=== PATIENT | female | born 1975 | race Two or more races ===

== ENCOUNTER 2017-07-10 00:48 | Emergency (ER) | payer MEDICAID ==
[~2017-07-10] VITALS: Ht 157.5 cm; Wt 68.0 kg
[2017-07-10 01:24] VITALS: BP 130/84
== END 2017-07-10 02:07 | disposition home or self-care (01) ==
LOC: ER 00:48
DX: S20.212A Contusion of left front wall of thorax, initial encounter (principal); L25.9 Unspecified contact dermatitis, unspecified cause; L74.3 Miliaria, unspecified; F17.210 Nicotine dependence, cigarettes, uncomplicated; F12.10 Cannabis abuse, uncomplicated; F15.10 Other stimulant abuse, uncomplicated; Z88.0 Allergy status to penicillin; Z98.51 Tubal ligation status; W22.8XXA Striking against or struck by other objects, initial encounter; Y93.39 Activity, other involving climbing, rappelling and jumping off; Y99.8 Other external cause status; Y92.89 Other specified places as the place of occurrence of the external cause
CPT/HCPCS: 71020

== ENCOUNTER 2017-10-09 21:25 | Emergency (ER) | payer MEDICAID ==
[~2017-10-09] VITALS: Ht 160 cm; Wt 69.9 kg
[2017-10-09 21:40] VITALS: BP 124/73
[2017-10-09 21:57] LABS: Urine Bilirubin Negative (Negative); Urine Blood 1+ /uL (Negative); Urine Color Yellow (Yellow); Urine Glucose Normal (Normal); Urine Ketone Negative (Negative); Urine Mucus FEW (None Seen); Urine Nitrite Negative (Negative); Urine RBC 11 /hpf (0 - 4); Urine Squamous Epithelial Cell FEW /hpf (<5); Urine Urobilinogen Normal (Negative); Urine pH 5.5 (5.0-8.0)
[2017-10-10] MEDS ORDERED: KETOROLAC TROMETH 60MG/2ML VIAL IM ONE (01:00)
== END 2017-10-10 01:12 | disposition home or self-care (01) ==
LOC: ER 21:25
DX: N93.9 Abnormal uterine and vaginal bleeding, unspecified (principal); F17.210 Nicotine dependence, cigarettes, uncomplicated; F12.10 Cannabis abuse, uncomplicated; F15.10 Other stimulant abuse, uncomplicated; Z88.0 Allergy status to penicillin; Z98.51 Tubal ligation status
CPT/HCPCS: 72131; 81001; 99285; J1885

== ENCOUNTER 2019-11-17 11:59 | Emergency (ER) | payer MEDICAID ==
[~2019-11-17] VITALS: Ht 154.9 cm; Wt 65.8 kg
[2019-11-17 14:43] VITALS: BP 107/69
== END 2019-11-17 16:01 | disposition home or self-care (01) ==
LOC: ER 12:03
DX: M25.561 Pain in right knee (principal); F17.210 Nicotine dependence, cigarettes, uncomplicated
CPT/HCPCS: 73562

== ENCOUNTER 2020-10-17 12:00 | Emergency (ER) | payer MEDICAID ==
[~2020-10-17] VITALS: Ht 157.5 cm; Wt 64.4 kg
[2020-10-17 13:02] VITALS: BP 122/68
== END 2020-10-18 04:47 | disposition left against medical advice (07) ==
LOC: ER 12:00 → EDBD 12:00 → ER 10-18 04:47
DX: F41.9 Anxiety disorder, unspecified (principal); F17.210 Nicotine dependence, cigarettes, uncomplicated
CPT/HCPCS: 71045

== ENCOUNTER 2022-12-13 10:55 | Inpatient (IN) | payer MEDICAID ==
[~2022-12-13] VITALS: Ht 154.9 cm; Wt 60.8 kg
[2022-12-13 12:01] LABS: Basophils # (auto) 0 10 ^3/uL (0-0.2); Basophils % (auto) 0.6 % (0.0-2.0); Eosinophils # (auto) 0.1 10 ^3/uL (0-0.8); Eosinophils % (auto) 0.8 % (0.0-7.0); Hemoglobin 18.7 g/dL (12.2-16.2); Lymphocytes # (auto) 1.1 10 ^3/uL (0.4-5.4); Lymphocytes % (auto) 13.7 % (10.0-50.0); Mean Corpuscular Hemoglobin 31.5 pg (28.0-32.0); Mean Corpuscular Hgb Conc. 32.6 g/dL (32.0-36.0); Mean Corpuscular Volume 96.6 fL (80.0-100.0); Monocytes # (auto) 0.3 10 ^3/uL (0-1.3); Monocytes % (auto) 3.9 % (0.0-12.0); Neutrophils # (auto) 6.3 10 ^3/uL (1.6-8.6); Nucleated Red Blood Cells % 0.1 %; Red Blood Cells 5.95 10^6/uL (4.0-5.20); Red Cell Distribution Width 15.1 % (11.8-14.3); White Blood Cell 7.8 10^3/uL (4.4-10.8)
[2022-12-13 12:02] LABS: Hematocrit 57.5 % (36.0-46.0)
[2022-12-13] MEDS ORDERED: ENOXAPARIN SOD 60 MG/0.6 ML SYRINGE SC ONE (13:00)
[2022-12-13 15:31] LABS: Albumin 2.9 g/dL (3.4-5.0); Calcium 8.6 mg/dL (8.5-10.1); Potassium 3.8 mmol/L (3.5-5.1)
[2022-12-13 15:35] LABS: Bilirubin, Total 0.9 mg/dL (0.2-1.0); Total Protein 6.8 g/dL (6.4-8.2)
[2022-12-13] MEDS ORDERED: MORPHINE SULFATE INJ 2 MG/ml SYRG IV PRN ×2 (15:45)
[2022-12-13] MEDS ORDERED: DOCUSATE SOD 100 MG CAP PO PRN (15:45)
[2022-12-13] MEDS ORDERED: ONDANSETRON HCL 4 MG/2 ML VIAL IV PRN (15:45)
[2022-12-13] MEDS ORDERED: NITROGLYCERIN 0.4 MG SL TAB SL PRN (15:45)
[2022-12-13] MEDS: SODIUM CHLORIDE 0.9% 1,000 ML IV SCH (16:12)
[2022-12-13 16:33] VITALS: BP 137/116
[2022-12-13 17:29] LABS: Urine Bacteria FEW /hpf (None Seen); Urine Blood TRACE /uL (Negative); Urine Mucus FEW (None Seen); Urine Specific Gravity 1.015 (1.001-1.035); Urine WBC 7 /hpf (0 - 5)
[2022-12-13] MEDS ORDERED: ALBUTEROL SULF 2.5 MG/0.5ML(0.5%) NEB SOLN NEB SCH (18:00)
[2022-12-13] MEDS ORDERED: ALBUTEROL MEDNEB 2.5 mg/3ml NEB ONE (18:19)
[2022-12-13] MEDS ORDERED: IOHEXOL 350 MG/ML 100ML IJ ONE ×2 (18:37→20:43)
[2022-12-13] MEDS: ALBUTEROL SULF 2.5 MG/0.5ML(0.5%) NEB SOLN NEB SCH (19:14)
[2022-12-13] MEDS: IPRATROPIUM BROM 0.5 MG/2.5ML INH SOL NEB SCH (19:14)
[2022-12-14] MEDS ORDERED: ALBUTEROL MEDNEB 2.5 mg/3ml NEB ONE ×6 (00:20→23:49)
[2022-12-14] MEDS: ENOXAPARIN SOD 60 MG/0.6 ML SYRINGE SC SCH ×2 (00:28→00:36)
[2022-12-14] MEDS: methylPREDNISolone SOD SUCC 125 MG/2 ML VL IV SCH ×4 (00:30→22:24)
[2022-12-14] MEDS: ALBUTEROL SULF 2.5 MG/0.5ML(0.5%) NEB SOLN NEB SCH ×4 (06:22→18:00)
[2022-12-14] MEDS: IPRATROPIUM BROM 0.5 MG/2.5ML INH SOL NEB SCH ×4 (06:22→18:00)
[2022-12-14] MEDS: SODIUM CHLORIDE 0.9% 1,000 ML IV SCH ×2 (07:30→10:36)
[2022-12-14] MEDS ORDERED: ENOXAPARIN SOD 40 MG/0.4 ML SYRINGE SC SCH (10:00)
[2022-12-14] MEDS: PANTOPRAZOLE 40 MG/10 ML VIAL INJ IV SCH (10:35)
[2022-12-14 14:24] VITALS: BP 147/96
[2022-12-14 15:19] LABS: Basophils # (auto) 0 10 ^3/uL (0-0.2); Eosinophils # (auto) 0 10 ^3/uL (0-0.8); Monocytes # (auto) 0.3 10 ^3/uL (0-1.3)
[2022-12-14 15:21] LABS: Basophils % (auto) 0.2 % (0.0-2.0); Hemoglobin 19.1 g/dL (12.2-16.2); Lymphocytes # (auto) 0.8 10 ^3/uL (0.4-5.4); Mean Corpuscular Hemoglobin 32.2 pg (28.0-32.0); Mean Corpuscular Hgb Conc. 33.8 g/dL (32.0-36.0); Mean Corpuscular Volume 95.2 fL (80.0-100.0); Monocytes % (auto) 2.6 % (0.0-12.0); Neutrophils # (auto) 11.5 10 ^3/uL (1.6-8.6); Neutrophils % (auto) 91.2 % (37.0-80.0); Nucleated Red Blood Cells % 0.7 %; Red Blood Cells 5.92 10^6/uL (4.0-5.20); White Blood Cell 12.6 10^3/uL (4.4-10.8)
[2022-12-14 15:26] LABS: Hematocrit 56.3 % (36.0-46.0)
[2022-12-14 15:35] LABS: Albumin 3.2 g/dL (3.4-5.0); Calcium 8.5 mg/dL (8.5-10.1); Potassium 4.1 mmol/L (3.5-5.1)
[2022-12-14 15:39] LABS: BUN/Creatinine Ratio 13.1; Bilirubin, Total 0.8 mg/dL (0.2-1.0); Total Protein 7.8 g/dL (6.4-8.2)
[2022-12-14] MEDS: FUROSEMIDE 40 MG/4 ML VIAL IV SCH ×2 (18:45→22:34)
[2022-12-14] MEDS ORDERED: INFLUENZA QUAD 2022-2023 0.5 ML SYRG IM ONE (19:30)
[2022-12-14] MEDS ORDERED: PNEUMOCOCCAL VACC POLYS 25 MCG/0.5 ML VIAL IM ONE (19:30)
[2022-12-14 20:00] VITALS: BP 140/92
[2022-12-14 22:00] VITALS: BP 140/94
[2022-12-15] VITALS (61 sets, daily range): BP systolic 62–140; BP diastolic 39–93
[2022-12-15] MEDS: IPRATROPIUM BROM 0.5 MG/2.5ML INH SOL NEB SCH ×5 (00:12→22:20)
[2022-12-15] MEDS: ALBUTEROL SULF 2.5 MG/0.5ML(0.5%) NEB SOLN NEB SCH ×5 (00:12→22:19)
[2022-12-15] MEDS: ACETAMINOPHEN 325 MG TAB PO PRN (01:19)
[2022-12-15] MEDS ORDERED: dilTIAZem 25 MG/5 ML VIAL IV ONE ×4 (02:29→02:45)
[2022-12-15 03:12] LABS: Basophils # (auto) 0.1 10 ^3/uL (0-0.2); Eosinophils # (auto) 0 10 ^3/uL (0-0.8); Monocytes # (auto) 0.4 10 ^3/uL (0-1.3); Neutrophils # (auto) 13.5 10 ^3/uL (1.6-8.6)
[2022-12-15 03:14] LABS: Basophils % (auto) 0.5 % (0.0-2.0); Hemoglobin 19.4 g/dL (12.2-16.2); Lymphocytes # (auto) 0.9 10 ^3/uL (0.4-5.4); Lymphocytes % (auto) 6.3 % (10.0-50.0); Mean Corpuscular Hemoglobin 31.5 pg (28.0-32.0); Mean Corpuscular Hgb Conc. 33.1 g/dL (32.0-36.0); Mean Corpuscular Volume 95.3 fL (80.0-100.0); Monocytes % (auto) 2.6 % (0.0-12.0); Neutrophils % (auto) 90.6 % (37.0-80.0); Nucleated Red Blood Cells % 0.2 %; Red Blood Cells 6.15 10^6/uL (4.0-5.20); White Blood Cell 14.9 10^3/uL (4.4-10.8)
[2022-12-15 03:15] LABS: Hematocrit 58.6 % (36.0-46.0)
[2022-12-15 03:22] LABS: Alanine Aminotransferase 82 U/L (13-56); Albumin 3.2 g/dL (3.4-5.0); Anion Gap 13 (5-15); Aspartate Aminotransferase 55 U/L (15-37); BUN/Creatinine Ratio 15.6; Blood Urea Nitrogen 20 mg/dL (7-18); Calcium 9.3 mg/dL (8.5-10.1); Carbon Dioxide 23 mmol/L (21-32); Chloride 102 mmol/L (98-107); GFR African American 57 mL/min; GFR Non-African American 47 mL/min; Glucose 169 mg/dL (74-106); Magnesium 1.9 mg/dL (1.6-2.6); Potassium 4.4 mmol/L (3.5-5.1); Sodium 138 mmol/L (136-145)
[2022-12-15 03:25] LABS: Alkaline Phosphatase 144 U/L (45-117); Bilirubin, Total 0.8 mg/dL (0.2-1.0); Total Protein 7.6 g/dL (6.4-8.2)
[2022-12-15] MEDS ORDERED: ASPirin-EC 325mg tab PO ONE (04:00)
[2022-12-15] MEDS: methylPREDNISolone SOD SUCC 125 MG/2 ML VL IV SCH ×3 (05:20→23:37)
[2022-12-15] MEDS ORDERED: ALBUTEROL MEDNEB 2.5 mg/3ml NEB ONE (06:00)
[2022-12-15] MEDS: FUROSEMIDE 40 MG/4 ML VIAL IV SCH ×3 (07:48→23:37)
[2022-12-15] MEDS ORDERED: LORazepam 2MG/ML-1ML VIAL IV ONE ×2 (08:15→11:00)
[2022-12-15] MEDS ORDERED: LORazepam 2MG/ML-1ML VIAL ONE (08:20)
[2022-12-15] MEDS ORDERED: AMIODARONE 450mg/250ml AE 250 ML IV ONE ×2 (08:25→15:45)
[2022-12-15] MEDS ORDERED: AMIODARONE HCL 150 MG in D5W 5% 100 ML IV ONE ×2 (08:30→11:45)
[2022-12-15] MEDS ORDERED: NOREPINEPHRINE 8 MG/250ML KIT 250 ML IV ONE (08:39)
[2022-12-15] MEDS ORDERED: AMIODARONE 450mg/250ml AE 250 ML IV SCH ×2 (08:45→14:45)
[2022-12-15] MEDS: NOREPINEPHRINE 8 MG/250ML KIT 250 ML IV SCH (09:30)
[2022-12-15] MEDS: PANTOPRAZOLE 40 MG/10 ML VIAL INJ IV SCH (09:54)
[2022-12-15] MEDS: ENOXAPARIN SOD 40 MG/0.4 ML SYRINGE SC SCH (09:54)
[2022-12-15] MEDS ORDERED: DIGOXIN (250MCG/ML) 2 ML AMPULE ONE (10:58)
[2022-12-15] MEDS ORDERED: DIGOXIN (250MCG/ML) 2 ML AMPULE IV ONE (11:00)
[2022-12-15] MEDS ORDERED: ETOMIDATE (2MG/ML) 20ML VIAL IV ONE (11:13)
[2022-12-15] MEDS ORDERED: ROCURONIUM 10MG/ML 10ML VIAL IV ONE (11:13)
[2022-12-15] MEDS: VASOPRESSIN 20 UNITS in SODIUM CHL 0.9% 99 ML IV SCH ×2 (12:10→22:07)
[2022-12-15 13:24] LABS: Basophils # (auto) 0 10 ^3/uL (0-0.2); Basophils % (auto) 0.2 % (0.0-2.0); Eosinophils # (auto) 0 10 ^3/uL (0-0.8); Hematocrit 54.8 % (36.0-46.0); Hemoglobin 18.4 g/dL (12.2-16.2); Lymphocytes # (auto) 0.7 10 ^3/uL (0.4-5.4); Lymphocytes % (auto) 5.2 % (10.0-50.0); Mean Corpuscular Hemoglobin 31.6 pg (28.0-32.0); Mean Corpuscular Hgb Conc. 33.6 g/dL (32.0-36.0); Monocytes # (auto) 0.7 10 ^3/uL (0-1.3); Monocytes % (auto) 4.7 % (0.0-12.0); Neutrophils # (auto) 12.5 10 ^3/uL (1.6-8.6); Neutrophils % (auto) 89.9 % (37.0-80.0); Nucleated Red Blood Cells % 0.3 %; Red Blood Cells 5.83 10^6/uL (4.0-5.20); Red Cell Distribution Width 14.9 % (11.8-14.3); White Blood Cell 13.9 10^3/uL (4.4-10.8)
[2022-12-15 13:30] LABS: Anion Gap 32 (5-15); Blood Urea Nitrogen 27 mg/dL (7-18); Calcium 8.2 mg/dL (8.5-10.1); Chloride 102 mmol/L (98-107); Glucose 167 mg/dL (74-106); Potassium 3.9 mmol/L (3.5-5.1); Sodium 135 mmol/L (136-145)
[2022-12-15] MEDS ORDERED: ADENOSINE 6 MG/2 ML INJ IV ONE (13:33)
[2022-12-15] MEDS ORDERED: AMIODARONE HCL (50 MG/ ML) 3 ML VIAL IV ONE (13:33)
[2022-12-15 13:48] LABS: Alanine Aminotransferase 78 U/L (13-56); Alkaline Phosphatase 126 U/L (45-117); Aspartate Aminotransferase 54 U/L (15-37); Bilirubin, Total 0.9 mg/dL (0.2-1.0); GFR African American 74 mL/min; GFR Non-African American 61 mL/min; Total Protein 7.1 g/dL (6.4-8.2)
[2022-12-15 13:51] LABS: BUN/Creatinine Ratio 26.5; Carbon Dioxide 1 mmol/L (21-32)
[2022-12-15 13:52] LABS: Magnesium < 0.3 mg/dL (1.6-2.6)
[2022-12-15 15:58] LABS: Basophils # (auto) 0 10 ^3/uL (0-0.2); Eosinophils # (auto) 0 10 ^3/uL (0-0.8); Lymphocytes # (auto) 0.8 10 ^3/uL (0.4-5.4); Mean Corpuscular Volume 95.3 fL (80.0-100.0); White Blood Cell 12.9 10^3/uL (4.4-10.8)
[2022-12-15 16:00] LABS: Basophils % (auto) 0.3 % (0.0-2.0); Hematocrit 52.2 % (36.0-46.0); Hemoglobin 17.4 g/dL (12.2-16.2); Lymphocytes % (auto) 6.2 % (10.0-50.0); Mean Corpuscular Hemoglobin 31.8 pg (28.0-32.0); Mean Corpuscular Hgb Conc. 33.4 g/dL (32.0-36.0); Monocytes # (auto) 0.7 10 ^3/uL (0-1.3); Monocytes % (auto) 5.2 % (0.0-12.0); Neutrophils # (auto) 11.4 10 ^3/uL (1.6-8.6); Neutrophils % (auto) 88.3 % (37.0-80.0); Nucleated Red Blood Cells % 0.5 %; Red Blood Cells 5.48 10^6/uL (4.0-5.20); Red Cell Distribution Width 14.8 % (11.8-14.3)
[2022-12-15 16:13] LABS: Alanine Aminotransferase 70 U/L (13-56); Albumin 2.7 g/dL (3.4-5.0); Anion Gap 9 (5-15); Aspartate Aminotransferase 45 U/L (15-37); BUN/Creatinine Ratio 24.8; Blood Urea Nitrogen 26 mg/dL (7-18); Calcium 8.7 mg/dL (8.5-10.1); Carbon Dioxide 27 mmol/L (21-32); Chloride 102 mmol/L (98-107); GFR African American 72 mL/min; GFR Non-African American 59 mL/min; Glucose 123 mg/dL (74-106); Potassium 4.2 mmol/L (3.5-5.1); Sodium 138 mmol/L (136-145)
[2022-12-15 16:15] LABS: Alkaline Phosphatase 119 U/L (45-117); Total Protein 6.6 g/dL (6.4-8.2)
[2022-12-15 16:28] LABS: INR 1.04 (0.9-1.15); Partial Thromboplastin Time 26.4 sec (24.6-33.4)
[2022-12-15] MEDS ORDERED: LIDOCAINE 1% (LOCAL ANESTH.) PF 5ml SDV ID ONE (17:30)
[2022-12-15] MEDS: SODIUM CHLOR 0.9% PF (SALINE LOCK) 10ML VIAL/SYR IV SCH (23:38)
[2022-12-16] VITALS (81 sets, daily range): BP systolic 82–137; BP diastolic 52–95
[2022-12-16] MEDS ORDERED: AMIODARONE 450mg/250ml AE 250 ML IV SCH (00:15)
[2022-12-16 04:34] LABS: Basophils # (auto) 0 10 ^3/uL (0-0.2); Basophils % (auto) 0.2 % (0.0-2.0); Eosinophils # (auto) 0 10 ^3/uL (0-0.8); Hematocrit 51.4 % (36.0-46.0); Hemoglobin 17.1 g/dL (12.2-16.2); Lymphocytes # (auto) 0.5 10 ^3/uL (0.4-5.4); Lymphocytes % (auto) 4.7 % (10.0-50.0); Mean Corpuscular Hemoglobin 31.6 pg (28.0-32.0); Mean Corpuscular Hgb Conc. 33.2 g/dL (32.0-36.0); Mean Corpuscular Volume 95.3 fL (80.0-100.0); Monocytes # (auto) 0.4 10 ^3/uL (0-1.3); Monocytes % (auto) 3.1 % (0.0-12.0); Neutrophils # (auto) 10.4 10 ^3/uL (1.6-8.6); Nucleated Red Blood Cells % 0.2 %; Red Cell Distribution Width 14.9 % (11.8-14.3); White Blood Cell 11.3 10^3/uL (4.4-10.8)
[2022-12-16 04:49] LABS: Potassium 3.6 mmol/L (3.5-5.1)
[2022-12-16 04:54] LABS: BUN/Creatinine Ratio 29.5; Calcium 8.1 mg/dL (8.5-10.1); Magnesium 1.9 mg/dL (1.6-2.6)
[2022-12-16] MEDS: methylPREDNISolone SOD SUCC 125 MG/2 ML VL IV SCH ×3 (05:14→22:27)
[2022-12-16] MEDS: FUROSEMIDE 40 MG/4 ML VIAL IV SCH ×3 (05:14→22:27)
[2022-12-16] MEDS ORDERED: ALBUTEROL MEDNEB 2.5 mg/3ml NEB ONE ×4 (06:15→23:41)
[2022-12-16] MEDS: ALBUTEROL SULF 2.5 MG/0.5ML(0.5%) NEB SOLN NEB SCH ×3 (06:44→18:23)
[2022-12-16] MEDS: IPRATROPIUM BROM 0.5 MG/2.5ML INH SOL NEB SCH ×3 (06:44→18:23)
[2022-12-16] MEDS: VASOPRESSIN 20 UNITS in SODIUM CHL 0.9% 99 ML IV SCH ×2 (09:14→20:21)
[2022-12-16] MEDS: NOREPINEPHRINE 8 MG/250ML KIT 250 ML IV SCH (09:17)
[2022-12-16] MEDS: ACETAMINOPHEN 325 MG TAB PO PRN (09:18)
[2022-12-16] MEDS: SODIUM CHLOR 0.9% PF (SALINE LOCK) 10ML VIAL/SYR IV SCH ×2 (09:18→22:00)
[2022-12-16] MEDS: ASPirin-EC 325mg tab PO SCH (09:18)
[2022-12-16] MEDS: ENOXAPARIN SOD 40 MG/0.4 ML SYRINGE SC SCH (09:18)
[2022-12-16] MEDS: PANTOPRAZOLE 40 MG/10 ML VIAL INJ IV SCH (09:18)
[2022-12-16] MEDS: MAGNESIUM SULFATE 1GM/100ML 100 ML IV SCH ×2 (13:11→14:14)
[2022-12-16] MEDS: SILDENAFIL CITRATE 20 MG TAB PO SCH (20:55)
[2022-12-16] MEDS: DOXYCYCLINE 100 MG TAB/CAP PO SCH (22:27)
[2022-12-17] VITALS (20 sets, daily range): BP systolic 83–126; BP diastolic 50–79
[2022-12-17] MEDS: ALBUTEROL SULF 2.5 MG/0.5ML(0.5%) NEB SOLN NEB SCH ×5 (00:07→23:45)
[2022-12-17] MEDS: IPRATROPIUM BROM 0.5 MG/2.5ML INH SOL NEB SCH ×5 (00:07→23:45)
[2022-12-17 05:22] LABS: Basophils # (auto) 0 10 ^3/uL (0-0.2); Eosinophils # (auto) 0 10 ^3/uL (0-0.8); Hemoglobin 18.5 g/dL (12.2-16.2); Lymphocytes # (auto) 0.6 10 ^3/uL (0.4-5.4)
[2022-12-17 05:24] LABS: Basophils % (auto) 0.2 % (0.0-2.0); Hematocrit 55.3 % (36.0-46.0); Lymphocytes % (auto) 5.5 % (10.0-50.0); Mean Corpuscular Hemoglobin 31.7 pg (28.0-32.0); Mean Corpuscular Hgb Conc. 33.5 g/dL (32.0-36.0); Mean Corpuscular Volume 94.5 fL (80.0-100.0); Monocytes # (auto) 0.7 10 ^3/uL (0-1.3); Neutrophils # (auto) 9.7 10 ^3/uL (1.6-8.6); Neutrophils % (auto) 88.3 % (37.0-80.0); Red Blood Cells 5.85 10^6/uL (4.0-5.20); Red Cell Distribution Width 14.7 % (11.8-14.3); White Blood Cell 10.9 10^3/uL (4.4-10.8)
[2022-12-17] MEDS: FUROSEMIDE 40 MG/4 ML VIAL IV SCH ×3 (06:00→21:10)
[2022-12-17] MEDS ORDERED: ALBUTEROL MEDNEB 2.5 mg/3ml NEB ONE ×4 (06:00→23:41)
[2022-12-17] MEDS: methylPREDNISolone SOD SUCC 125 MG/2 ML VL IV SCH ×3 (06:08→21:17)
[2022-12-17] MEDS: VASOPRESSIN 20 UNITS in SODIUM CHL 0.9% 99 ML IV SCH ×2 (07:28→18:35)
[2022-12-17] MEDS: PANTOPRAZOLE 40 MG/10 ML VIAL INJ IV SCH (09:16)
[2022-12-17] MEDS: ACETAMINOPHEN 325 MG TAB PO PRN ×2 (09:17→20:24)
[2022-12-17] MEDS: ASPirin-EC 325mg tab PO SCH (09:17)
[2022-12-17] MEDS: ENOXAPARIN SOD 40 MG/0.4 ML SYRINGE SC SCH (09:17)
[2022-12-17] MEDS: DOXYCYCLINE 100 MG TAB/CAP PO SCH ×2 (09:17→21:09)
[2022-12-17] MEDS: SILDENAFIL CITRATE 20 MG TAB PO SCH ×3 (09:18→20:25)
[2022-12-17] MEDS: NOREPINEPHRINE 8 MG/250ML KIT 250 ML IV SCH (09:30)
[2022-12-17 10:12] LABS: Albumin 2.6 g/dL (3.4-5.0); Potassium 3.5 mmol/L (3.5-5.1)
[2022-12-17 10:16] LABS: BUN/Creatinine Ratio 28.2; Total Protein 6.8 g/dL (6.4-8.2)
[2022-12-17] MEDS: SODIUM CHLOR 0.9% PF (SALINE LOCK) 10ML VIAL/SYR IV SCH ×2 (11:34→21:48)
[2022-12-17] MEDS ORDERED: POTASSIUM EFFERVESENT TAB 25 MEQ PO ONE (12:30)
[2022-12-17] MEDS ORDERED: MAGNESIUM OXIDE 400 MG TAB PO ONE (12:30)
[2022-12-18 05:00] VITALS: BP 113/59
[2022-12-18] MEDS: methylPREDNISolone SOD SUCC 125 MG/2 ML VL IV SCH ×3 (05:34→21:29)
[2022-12-18] MEDS: FUROSEMIDE 40 MG/4 ML VIAL IV SCH ×3 (05:34→21:28)
[2022-12-18] MEDS: VASOPRESSIN 20 UNITS in SODIUM CHL 0.9% 99 ML IV SCH (05:42)
[2022-12-18] MEDS: ACETAMINOPHEN 325 MG TAB PO PRN ×2 (05:43→18:33)
[2022-12-18] MEDS ORDERED: ALBUTEROL MEDNEB 2.5 mg/3ml NEB ONE ×4 (06:11→23:54)
[2022-12-18] MEDS: IPRATROPIUM BROM 0.5 MG/2.5ML INH SOL NEB SCH ×4 (06:50→23:55)
[2022-12-18] MEDS: ALBUTEROL SULF 2.5 MG/0.5ML(0.5%) NEB SOLN NEB SCH ×4 (06:50→23:56)
[2022-12-18 07:32] LABS: Basophils # (auto) 0 10 ^3/uL (0-0.2); Basophils % (auto) 0.2 % (0.0-2.0); Eosinophils # (auto) 0 10 ^3/uL (0-0.8); Hemoglobin 19.3 g/dL (12.2-16.2); Lymphocytes # (auto) 0.6 10 ^3/uL (0.4-5.4); Mean Corpuscular Hemoglobin 31.7 pg (28.0-32.0); Monocytes # (auto) 0.4 10 ^3/uL (0-1.3); Red Cell Distribution Width 14.6 % (11.8-14.3)
[2022-12-18 07:35] LABS: Lymphocytes % (auto) 5.6 % (10.0-50.0); Mean Corpuscular Hgb Conc. 33.8 g/dL (32.0-36.0); Mean Corpuscular Volume 93.8 fL (80.0-100.0); Monocytes % (auto) 4.5 % (0.0-12.0); Neutrophils % (auto) 89.7 % (37.0-80.0); Nucleated Red Blood Cells % 1.3 %; Red Blood Cells 6.08 10^6/uL (4.0-5.20)
[2022-12-18 07:45] LABS: Albumin 2.9 g/dL (3.4-5.0); Calcium 8.2 mg/dL (8.5-10.1); Potassium 3.7 mmol/L (3.5-5.1)
[2022-12-18 07:49] LABS: Bilirubin, Total 0.9 mg/dL (0.2-1.0)
[2022-12-18 09:13] VITALS: BP 97/61
[2022-12-18] MEDS: NOREPINEPHRINE 8 MG/250ML KIT 250 ML IV SCH (09:30)
[2022-12-18] MEDS: DOXYCYCLINE 100 MG TAB/CAP PO SCH ×2 (09:36→21:29)
[2022-12-18] MEDS: ENOXAPARIN SOD 40 MG/0.4 ML SYRINGE SC SCH (09:36)
[2022-12-18] MEDS: SILDENAFIL CITRATE 20 MG TAB PO SCH ×3 (09:36→20:29)
[2022-12-18] MEDS: PANTOPRAZOLE 40 MG/10 ML VIAL INJ IV SCH (09:36)
[2022-12-18] MEDS: SODIUM CHLOR 0.9% PF (SALINE LOCK) 10ML VIAL/SYR IV SCH ×2 (09:37→21:28)
[2022-12-18] MEDS: ASPirin-EC 325mg tab PO SCH (11:09)
[2022-12-18 12:48] VITALS: BP 106/79
[2022-12-18 16:52] VITALS: BP 109/70
[2022-12-19] MEDS: ACETAMINOPHEN 325 MG TAB PO PRN ×2 (04:20→14:35)
[2022-12-19 05:00] VITALS: BP 107/67
[2022-12-19] MEDS ORDERED: ALBUTEROL MEDNEB 2.5 mg/3ml NEB ONE ×3 (05:28→18:13)
[2022-12-19] MEDS: methylPREDNISolone SOD SUCC 125 MG/2 ML VL IV SCH ×2 (05:42→14:23)
[2022-12-19] MEDS: FUROSEMIDE 40 MG/4 ML VIAL IV SCH (05:42)
[2022-12-19 06:17] LABS: Basophils # (auto) 0 10 ^3/uL (0-0.2); Eosinophils # (auto) 0 10 ^3/uL (0-0.8); Hematocrit 58.2 % (36.0-46.0); Hemoglobin 19.3 g/dL (12.2-16.2); Lymphocytes # (auto) 0.6 10 ^3/uL (0.4-5.4); Lymphocytes % (auto) 6.3 % (10.0-50.0); Mean Corpuscular Hemoglobin 31.7 pg (28.0-32.0); Mean Corpuscular Hgb Conc. 33.3 g/dL (32.0-36.0); Mean Corpuscular Volume 95.4 fL (80.0-100.0); Monocytes # (auto) 0.6 10 ^3/uL (0-1.3); Monocytes % (auto) 6.8 % (0.0-12.0); Neutrophils # (auto) 7.9 10 ^3/uL (1.6-8.6); Neutrophils % (auto) 86.9 % (37.0-80.0); Nucleated Red Blood Cells % 0.2 %; Red Cell Distribution Width 14.9 % (11.8-14.3); White Blood Cell 9.1 10^3/uL (4.4-10.8)
[2022-12-19] MEDS: ALBUTEROL SULF 2.5 MG/0.5ML(0.5%) NEB SOLN NEB SCH ×3 (06:24→11:23)
[2022-12-19] MEDS: IPRATROPIUM BROM 0.5 MG/2.5ML INH SOL NEB SCH ×4 (06:24→18:59)
[2022-12-19 06:36] LABS: Anion Gap 12 (5-15); BUN/Creatinine Ratio 37.5; Blood Urea Nitrogen 30 mg/dL (7-18); Calcium 8.8 mg/dL (8.5-10.1); Carbon Dioxide 32 mmol/L (21-32); Chloride 91 mmol/L (98-107); GFR African American 98 mL/min; GFR Non-African American 81 mL/min; Glucose 121 mg/dL (74-106); Magnesium 2.1 mg/dL (1.6-2.6); Potassium 4.2 mmol/L (3.5-5.1); Sodium 135 mmol/L (136-145)
[2022-12-19] MEDS: SILDENAFIL CITRATE 20 MG TAB PO SCH ×3 (08:31→20:05)
[2022-12-19 08:37] VITALS: BP 107/60
[2022-12-19] MEDS: PANTOPRAZOLE 40 MG/10 ML VIAL INJ IV SCH (10:52)
[2022-12-19] MEDS: ASPirin-EC 325mg tab PO SCH (10:53)
[2022-12-19] MEDS: SODIUM CHLOR 0.9% PF (SALINE LOCK) 10ML VIAL/SYR IV SCH ×2 (10:53→21:40)
[2022-12-19] MEDS: ENOXAPARIN SOD 40 MG/0.4 ML SYRINGE SC SCH (10:53)
[2022-12-19] MEDS: DOXYCYCLINE 100 MG TAB/CAP PO SCH ×2 (10:53→21:40)
[2022-12-19 12:30] VITALS: BP 111/69
[2022-12-19] MEDS ORDERED: SILD20TA PO (12:59)
[2022-12-19] MEDS ORDERED: DOX100T PO (12:59)
[2022-12-19] MEDS ORDERED: CAR3125T OR (14:31)
[2022-12-19] MEDS ORDERED: FURO1TAB31 PO (14:31)
[2022-12-19] MEDS ORDERED: ALBUAER3 IN (15:05)
[2022-12-19 16:26] VITALS: BP 103/78
[2022-12-19] MEDS: ALBUTEROL MEDNEB 2.5 mg/3ml NEB NEB SCH (18:59)
[2022-12-19 22:00] VITALS: BP 107/71
[2022-12-20 00:01] LABS: Alcohol, Urine < 3.0 mg/dL (0-10); Amphetamine Screen, Urine NEGATIVE (NEGATIVE); Barbiturate Scree,Urine NEGATIVE (NEGATIVE); Benzodiazephine Screen, Urine NEGATIVE (NEGATIVE); Cannabinoid Screen, Urine POSITIVE (NEGATIVE); Cocaine Screen, Urine NEGATIVE (NEGATIVE)
[2022-12-20 00:09] LABS: Opiate Scree,Urine NEGATIVE (NEGATIVE); Phencyclidine Screen, Urine NEGATIVE (NEGATIVE)
[2022-12-20 02:55] VITALS: BP 107/71
[2022-12-20 05:00] VITALS: BP 117/67
[2022-12-20] MEDS: IPRATROPIUM BROM 0.5 MG/2.5ML INH SOL NEB SCH ×4 (06:00→11:32)
[2022-12-20] MEDS: ALBUTEROL MEDNEB 2.5 mg/3ml NEB NEB SCH ×4 (06:00→11:32)
[2022-12-20 07:58] VITALS: BP 148/72
[2022-12-20] MEDS: SILDENAFIL CITRATE 20 MG TAB PO SCH ×2 (08:02→13:41)
[2022-12-20] MEDS ORDERED: predniSONE 20 MG TAB PO SCH (10:00)
[2022-12-20] MEDS: SODIUM CHLOR 0.9% PF (SALINE LOCK) 10ML VIAL/SYR IV SCH (10:29)
[2022-12-20] MEDS: DOXYCYCLINE 100 MG TAB/CAP PO SCH (10:30)
[2022-12-20] MEDS: ASPirin-EC 325mg tab PO SCH (10:30)
[2022-12-20] MEDS: PANTOPRAZOLE 40 MG/10 ML VIAL INJ IV SCH (10:31)
[2022-12-20] MEDS: ENOXAPARIN SOD 40 MG/0.4 ML SYRINGE SC SCH (10:31)
[2022-12-20] MEDS: ACETAMINOPHEN 325 MG TAB PO PRN (10:43)
[2022-12-20 12:00] VITALS: BP 128/88
[2022-12-20 12:46] VITALS: BP 128/88
== END 2022-12-20 14:55 | disposition home or self-care (01) | DRG 140 ==
LOC: ER 10:55 → EDBD 10:55 → TELE 15:46 → EAST 12-14 13:24 → TELE-CENTR 12-14 19:20 → ICU WEST 12-15 10:15 → TELE-CENTR 12-17 17:50 → TELE-EAST 12-18 16:25
PROVIDERS: ADMIT Nurse Practitioner Family; ATTEND Internal Medicine
PROC: 5A0935A Assistance with Respiratory Ventilation, Less than 24 Consecutive Hours, High Flow/Velocity Cannula (ICD-10-PCS; principal; 2022-12-15)
PROC: 5A2204Z Restoration of Cardiac Rhythm, Single (ICD-10-PCS; 2022-12-15)
PROC: 02HV33Z Insertion of Infusion Device into Superior Vena Cava, Percutaneous Approach (ICD-10-PCS; 2022-12-15)
PROC: B548ZZA Ultrasonography of Superior Vena Cava, Guidance (ICD-10-PCS; 2022-12-15)
PROC: 5A0935A Assistance with Respiratory Ventilation, Less than 24 Consecutive Hours, High Flow/Velocity Cannula (ICD-10-PCS; 2022-12-16)
DX: J44.1 Chronic obstructive pulmonary disease with (acute) exacerbation (principal); J96.01 Acute respiratory failure with hypoxia; I50.33 Acute on chronic diastolic (congestive) heart failure; I27.21 Secondary pulmonary arterial hypertension; J18.9 Pneumonia, unspecified organism; I24.9 Acute ischemic heart disease, unspecified; N17.9 Acute kidney failure, unspecified; I47.1 Supraventricular tachycardia; I50.82 Biventricular heart failure; I11.0 Hypertensive heart disease with heart failure; J44.0 Chronic obstructive pulmonary disease with (acute) lower respiratory infection; E78.5 Hyperlipidemia, unspecified; F12.90 Cannabis use, unspecified, uncomplicated; F15.10 Other stimulant abuse, uncomplicated; J98.11 Atelectasis; Z20.822 Contact with and (suspected) exposure to COVID-19; F17.210 Nicotine dependence, cigarettes, uncomplicated; R74.01 Elevation of levels of liver transaminase levels; R79.89 Other specified abnormal findings of blood chemistry; Z86.73 Personal history of transient ischemic attack (TIA), and cerebral infarction without residual deficits; Z88.0 Allergy status to penicillin
CPT/HCPCS: 36415; 36569; 36600; 70450; 71045; 71275; 80048; 80053; 80307; 81001; 82805; 82962; 83735; 83880; 84100; 84484; 85025; 85379; 85610; 85730; 87426; 87804; 93005; 93306; 94003; 94640; 94762; 96360; 96372; 97163; 99291; C9113; G0378; J0153; J7060

== ENCOUNTER 2023-03-25 23:20 | Inpatient (IN) | payer MEDICAID ==
[~2023-03-25] VITALS: Ht 167.6 cm; Wt 70.9 kg
[~2023-03-25 23:20] MED LIST: ALBUAER3 IN; CAR3125T OR; DOX100T PO; FURO1TAB31 PO; SILD20TA PO
[2023-03-25] MEDS ORDERED: SODIUM CHLORIDE 0.9% 1,000 ML IV ONE (23:45)
[2023-03-26 00:08] LABS: Basophils # (auto) 0.1 10 ^3/uL (0-0.2); Basophils % (auto) 1.2 % (0.0-2.0); Eosinophils # (auto) 0 10 ^3/uL (0-0.8); Eosinophils % (auto) 0.3 % (0.0-7.0); Hematocrit 43.4 % (36.0-46.0); Lymphocytes # (auto) 2.2 10 ^3/uL (0.4-5.4); Lymphocytes % (auto) 25.4 % (10.0-50.0); Mean Corpuscular Hemoglobin 31.9 pg (28.0-32.0); Mean Corpuscular Hgb Conc. 34.6 g/dL (32.0-36.0); Monocytes # (auto) 0.8 10 ^3/uL (0-1.3); Monocytes % (auto) 9.4 % (0.0-12.0); Neutrophils # (auto) 5.6 10 ^3/uL (1.6-8.6); Neutrophils % (auto) 63.7 % (37.0-80.0); Nucleated Red Blood Cells % 0.1 %; Red Blood Cells 4.71 10^6/uL (4.0-5.20); Red Cell Distribution Width 14.7 % (11.8-14.3); White Blood Cell 8.7 10^3/uL (4.4-10.8)
[2023-03-26 00:22] LABS: INR 1.09 (0.9-1.15); Partial Thromboplastin Time 28.4 sec (24.6-33.4)
[2023-03-26 00:27] LABS: Albumin 3.7 g/dL (3.4-5.0); BUN/Creatinine Ratio 19.5 (10.0-20.0); Potassium 3.1 mmol/L (3.5-5.1)
[2023-03-26 00:29] LABS: Total Protein 8.1 g/dL (6.4-8.2)
[2023-03-26] MEDS ORDERED: POTASSIUM EFFERVESENT TAB 25 MEQ PO ONE (04:15)
[2023-03-26] MEDS ORDERED: ONDANSETRON HCL 4 MG/2 ML VIAL IV PRN (06:15)
[2023-03-26] MEDS ORDERED: NITROGLYCERIN 0.4 MG SL TAB SL PRN (06:15)
[2023-03-26] MEDS ORDERED: MORPHINE SULFATE INJ 2 MG/ml SYRG IV PRN (06:15)
[2023-03-26] MEDS: CARVEDILOL 3.125 MG TAB PO SCH ×2 (08:31→22:57)
[2023-03-26] MEDS: SILDENAFIL CITRATE 20 MG TAB PO SCH (08:31)
[2023-03-26] MEDS: PANTOPRAZOLE 40 MG TAB PO SCH (09:14)
[2023-03-26] MEDS: FUROSEMIDE 40 MG TAB PO SCH (09:16)
[2023-03-26] MEDS ORDERED: ADENOSINE 6 MG/2 ML INJ IV ONE ×2 (12:50→13:00)
[2023-03-26] MEDS ORDERED: AMIODARONE 450mg/250ml AE 250 ML IV SCH (15:00)
[2023-03-26] MEDS: AMIODARONE 450mg/250ml AE 250 ML IV SCH (22:58)
[2023-03-26 23:12] VITALS: BP 95/80
[2023-03-26 23:41] VITALS: BP 95/80
[2023-03-27 04:19] LABS: Urine Bacteria NONE SEEN /hpf (None Seen); Urine Blood Negative /uL (Negative); Urine Specific Gravity 1.031 (1.001-1.035); Urine WBC 5 /hpf (0 - 5)
[2023-03-27 04:34] LABS: Amphetamine Screen, Urine POSITIVE (NEGATIVE); Barbiturate Scree,Urine NEGATIVE (NEGATIVE); Benzodiazephine Screen, Urine NEGATIVE (NEGATIVE); Cannabinoid Screen, Urine POSITIVE (NEGATIVE); Cocaine Screen, Urine NEGATIVE (NEGATIVE)
[2023-03-27 04:42] LABS: Alcohol, Urine < 3.0 mg/dL (0-10); Opiate Scree,Urine NEGATIVE (NEGATIVE); Phencyclidine Screen, Urine NEGATIVE (NEGATIVE)
[2023-03-27 05:00] VITALS: BP 99/66
[2023-03-27 06:18] LABS: BUN/Creatinine Ratio 29.2 (10.0-20.0); Calcium 8.4 mg/dL (8.5-10.1); Potassium 3.6 mmol/L (3.5-5.1)
[2023-03-27 09:00] VITALS: BP 97/37
[2023-03-27 10:45] VITALS: BP 111/69
[2023-03-27] MEDS: SILDENAFIL CITRATE 20 MG TAB PO SCH (10:46)
[2023-03-27] MEDS: CARVEDILOL 3.125 MG TAB PO SCH ×2 (10:46→23:07)
[2023-03-27] MEDS: PANTOPRAZOLE 40 MG TAB PO SCH (10:46)
[2023-03-27] MEDS: FUROSEMIDE 40 MG TAB PO SCH (10:47)
[2023-03-27 13:00] VITALS: BP 99/58
[2023-03-27] MEDS: AMIODARONE 450mg/250ml AE 250 ML IV SCH (13:40)
[2023-03-27 17:00] VITALS: BP 110/40
[2023-03-27 22:00] VITALS: BP 111/78
[2023-03-28 05:00] VITALS: BP 105/69
[2023-03-28] MEDS: AMIODARONE 450mg/250ml AE 250 ML IV SCH (06:32)
[2023-03-28 09:00] VITALS: BP 101/66
[2023-03-28] MEDS: FUROSEMIDE 40 MG TAB PO SCH (09:15)
[2023-03-28] MEDS: SILDENAFIL CITRATE 20 MG TAB PO SCH (09:15)
[2023-03-28] MEDS: PANTOPRAZOLE 40 MG TAB PO SCH (09:15)
[2023-03-28] MEDS: CARVEDILOL 3.125 MG TAB PO SCH ×2 (09:15→21:13)
[2023-03-28 13:00] VITALS: BP 98/63
[2023-03-28 17:00] VITALS: BP 97/66
[2023-03-28 22:00] VITALS: BP 112/75
[2023-03-29 05:00] VITALS: BP 94/54
[2023-03-29] MEDS: FUROSEMIDE 40 MG TAB PO SCH (09:22)
[2023-03-29] MEDS: PANTOPRAZOLE 40 MG TAB PO SCH (09:23)
[2023-03-29] MEDS: SILDENAFIL CITRATE 20 MG TAB PO SCH (09:23)
[2023-03-29] MEDS: CARVEDILOL 3.125 MG TAB PO SCH (09:24)
[2023-03-29 09:27] VITALS: BP 120/70
[2023-03-29] MEDS ORDERED: AMIODARONE HCL 200 MG TAB PO SCH (10:00)
[2023-03-29] MEDS ORDERED: AMIO200T33 PO (10:55)
[2023-03-29 11:25] VITALS: BP 120/70
[2023-03-29 12:00] VITALS: BP 114/66
== END 2023-03-29 14:40 | disposition home or self-care (01) | DRG 194 ==
LOC: ER 23:20 → EDBD 23:20 → TELE 03-26 06:19 → TELE-EAST 03-26 21:35
PROVIDERS: ADMIT Nurse Practitioner; ATTEND Internal Medicine
DX: I13.0 Hypertensive heart and chronic kidney disease with heart failure and stage 1 through stage 4 chronic kidney disease, or unspecified chronic kidney disease (principal); I27.29 Other secondary pulmonary hypertension; I47.1 Supraventricular tachycardia; I50.43 Acute on chronic combined systolic (congestive) and diastolic (congestive) heart failure; E87.6 Hypokalemia; J44.9 Chronic obstructive pulmonary disease, unspecified; J98.11 Atelectasis; N18.9 Chronic kidney disease, unspecified; Z88.0 Allergy status to penicillin; F17.210 Nicotine dependence, cigarettes, uncomplicated; R74.01 Elevation of levels of liver transaminase levels; R79.89 Other specified abnormal findings of blood chemistry
CPT/HCPCS: 36415; 70450; 80048; 80053; 80307; 81001; 83735; 83880; 84484; 85025; 85610; 85730; 93005; 96361; G0378; J0153

== ENCOUNTER 2024-10-06 19:48 | Inpatient (IN) | payer MEDICAID ==
[~2024-10-06] VITALS: Ht 157.5 cm; Wt 63.8 kg
[~2024-10-06 19:48] MED LIST changes: +AMIO200T33 PO; -CAR3125T OR; +CARV-214 OR; +SERT-206 PO
[2024-10-06] MEDS: SODIUM CHLORIDE 0.9% 1,000 ML IV ONE (20:30)
[2024-10-06] MEDS ORDERED: ADENOSINE 6 MG/2 ML INJ IV ONE (20:30)
--- NOTE | 2024-10-06 20:38 | ED.PDOC ---
History of Present Illness HPI Comments 48 y/o F, with a Hx of CHF, COPD, SVT, pulmonary HTN, and tobacco and marijuana use, presents complaining of chest pain and palpitations. Patient states she began to since an irregular heartbeat while watching the football game this afternoon. Symptoms persisted until this evening when she began to feel rapid palpitations and chest tightness, then became diaphoretic. On arrival to the ER patient was found to be in SVT. At that time she reported abdominal tightness. Patient vomited, then cardiac rhythm converted to sinus. Patient subsequently reported relief of palpitations. Chief Complaint: Chest Pain Time Seen by MD: 20:30 Primary Care Provider: DR. OG Reviewed Notes: Nurses Notes, Medications, Allergies Allergies: Coded Allergies: Penicillins (Verified Allergy, Mild, 12/22/22) Patient stated that she took PCNs by mouth when she was 12 years old and developed rash/hives at that time. Patient stated that she took Keflex about 2 years ago ( 2020) and tolerate well. There was no problem with Keflex Uncoded Allergies: CARDIZEM (Allergy, Intermediate, 10/06/24) HIVES Home Meds Active Scripts Amiodarone Hcl (Amiodarone Hcl) 200 Mg Tab, 1 TAB PO DAILY, #30 TAB 5 Refills Prov:MUSHTAQ ABREU MD 03/29/23 Albuterol Sulfate (VENTOLIN MDI) 90 Mcg Ih, 90 MCG IN Q6HP PRN, #1 INH Prov:ELISE TRISTAN MD 12/19/22 Carvedilol (COREG) 3.125 Mg Tab, 3.125 MG OR Q12HR, #60 TAB Prov:ELISE TRISTAN MD 12/19/22 Furosemide (Lasix) 40 Mg Tab, 40 MG PO DAILY, #30 TAB Prov:ELISE TRISTAN MD 12/19/22 Sildenafil Citrate (Revatio) 20 Mg Tab, 20 MG PO TID@08,14,20 for 30 Days, #90 TAB Prov:ELISE TRISTAN MD 12/19/22 Doxycycline Monohydrate (Doxycycline Monohydrate) 100 Mg Tab, 100 MG PO Q12HR for 5 Days, #10 TAB Prov:ELISE TRISTAN MD 12/19/22 Information Source: Patient Mode of Arrival: Ambulatory Severity: Moderate Timing: Hours Duration: Since onset Prehospital treatment: None Past Medical History PAST MEDICAL HISTORY: CHF, COPD, HTN (pulmonary ) Past Medical History (Other): SVT Surgical History: BTL, IN [employer]ASSRO[employer] TUTOR History: No Pertinent IN [employer]SRO[employer] TUTOR History Family History Family History: Reviewed,noncontributory to illness Social History Smoker: Cigarettes Alcohol: Denies ETOH Use Drugs: Marijuana Lives In: Home Constitutional: reports: diaphoresis; denies: chills, fatigue, fever, malaise, sweats, weakness, others EENTM: denies: blurred vision, double vision, ear bleeding, ear discharge, ear drainage, ear pain, ear ringing, eye pain, eye redness, hearing loss, mouth pain, mouth swelling, nasal discharge, nose bleeding, nose congestion, nose pain, photophobia, tearing, throat pain, throat swelling, voice changes, others Respiratory: denies: cough, hemoptysis, orthopnea, SOB at rest, shortness of breath, SOB with excertion, stridor, wheezing, others Cardiovascular: reports: irregular heart beat, palpitations; denies: chest pain, dizzy spells, diaphoresis, Dyspnea on exertion, edema, left arm pain, lightheadedness, PND, syncope, others Gastrointestinal: denies: abdomen distended, abdominal pain, blood streaked bowels, constipated, diarrhea, dysphagia, difficulty swallowing, hematemesis, melena, nausea, poor appetite, poor fluid intake, rectal bleeding, rectal pain, vomiting, others Genitourinary: denies: abnormal vagina bleeding, burning, dyspareunia, dysuria, flank pain, frequency, hematuria, incontinence, pain, , vagina discharge, urgency, others Neurological: denies: dizziness, fainting, headache, left sided numbness, left sided weakness, numbness, paresthesia, pre-existing deficit, right sided numbness, right sided weakness, seizure, speech problems, tingling, tremors, weakness, others Musculoskeletal: denies: back pain, gout, joint pain, joint swelling, muscle pain, muscle stiffness, neck pain, others Integumetry: denies: bruises, change in color, change in hair/nails, dryness, laceration, lesions, lumps, rash, wounds, others Allergic/Immunocompromised: denies: Difficulty Healing, Frequent Infections, Hives, Itching, others Hematologic/Lymphatic: denies: anemia, blood clots, easy bleeding, easy bruising, swollen glands, others Endocrine: denies: excessive hunger, excessive sweating, excessive thirst, excessive urination, flushing, intolerance to cold, intolerance to heat, unexplained weight gain, unexplained weight loss, others Psychiatric: denies: anxiety, bipolar disorder, depression, hopeless, panic disorder, schizophrenia, sleepless, suicidal, others All Other Systems: Reviewed and Negative Physical Exam General Appearance: Mild Distress HEENT: PERRL/EOMI Neck: Full Range of Motion, Normal Inspection Respiratory: Lungs Clear, No Accessory Muscle Use, No Respiratory Distress, Normal Breath Sounds Cardiovascular: No Edema, No JVD, Tachycardia Breast Exam: Deferred Gastrointestinal: Non Tender, Soft Genitalia: Deferred Pelvic: Deferred Rectal: Deferred Extremities: Normal inspection, Normal range of motion, Non-tender, No pedal edema Neurologic: Alert, No Motor Deficits, Normal Affect, Normal Mood, No Sensory Deficits Cerebellar Function: NOT DONE Reflexes: NOT DONE Skin: Dry, Normal Color, Warm Lymphatic: NOT DONE Was a procedure done? Was a procedure done?: No EKG EKG #1: Comments SVT, rate 195, QRS interval normal, QTC interval prolonged at 505, normal axis, RVH with secondary repolarization abnormality, inferior lateral ST depression EKG #2: Comments Atrial rhythm, rate 70, normal intervals, normal axis, RVH with secondary repolarization abnormality, inferior and lateral T-wave inversion Differential Dx Considerations may include: SVT, rapid AFib, other arrhythmia, ACS, CA, PE, electrolyte imbalance, drug/alcohol abuse, among others X-Ray, Labs, Meds, VS Vital Signs Date Time Temp Pulse Resp B/P (MAP) Pulse Ox O2 Delivery O2 Flow Rate FiO2 10/06/24 21:00 70 10/06/24 19:56 195 10/06/24 19:56 98.9 194 22 142/126 (131) 91 Lab Test 10/06/24 21:44 10/06/24 19:57 Range/Units Troponin I High Sensitivity Pending 19 </=34 ng/L White Blood Count 6.5 4.4-10.8 10^3/uL Red Blood Count 5.48 H 4.0-5.20 10^6/uL Hemoglobin 17.2 H 12.2-16.2 g/dL Hematocrit 49.5 H 36.0-46.0 % Mean Corpuscular Volume 90.3 80.0-100.0 fL Mean Corpuscular Hemoglobin 31.4 28.0-32.0 pg Mean Corpuscular Hemoglobin Concent 34.8 32.0-36.0 g/dL Red Cell Distribution Width 14.0 11.8-14.3 % Platelet Count 325 140-450 10^3/uL Mean Platelet Volume 10.0 6.9-10.8 fL Neutrophils (%) (Auto) 39.2 37.0-80.0 % Lymphocytes (%) (Auto) 48.4 10.0-50.0 % Monocytes (%) (Auto) 7.5 0.0-12.0 % Eosinophils (%) (Auto) 3.7 0.0-7.0 % Basophils (%) (Auto) 1.2 0.0-2.0 % Neutrophils # (Auto) 2.5 1.6-8.6 10 ^3/uL Lymphocytes # (Auto) 3.1 0.4-5.4 10 ^3/uL Monocytes # (Auto) 0.5 0-1.3 10 ^3/uL Eosinophils # (Auto) 0.2 0-0.8 10 ^3/uL Basophils # (Auto) 0.1 0-0.2 10 ^3/uL Nucleated Red Blood Cells 0.6 % Prothrombin Time 10.6 9.3-11.8 sec Prothrombin Time INR 1.00 0.9-1.15 Activated Partial Thromboplast Time 26.8 24.5-34.5 SEC Sodium Level 139 136-145 mmol/L Potassium Level 4.3 3.5-5.1 mmol/L Chloride Level 105 98-107 mmol/L Carbon Dioxide Level 21 20-31 mmol/L Anion Gap 13 5-15 Blood Urea Nitrogen 10 9-23 mg/dL Creatinine 1.00 0.550-1.02 mg/dL Glomerular Filtration Rate Calc 69 >90 mL/min BUN/Creatinine Ratio 10.0 10.0-20.0 Serum Glucose 139 H 74-106 mg/dL Calcium Level 9.8 8.7-10.4 mg/dL Magnesium Level 2.0 1.6-2.6 mg/dL Total Bilirubin 0.7 0.2-1.0 mg/dL Aspartate Amino Transferase (AST) 140 H 13-40 U/L Alanine Aminotransferase (ALT) 72 H 7-40 U/L Alkaline Phosphatase 140 H 46-116 U/L B-Type Natriuretic Peptide 754.67 0-100 pg/mL Total Protein 7.5 5.7-8.2 g/dL Albumin 4.3 3.2-4.8 g/dL Current Medications Medications (Trade) Dose Ordered Sig/Manolo Route Start Time Stop Time Status Last Admin Diltiazem HCl (Cardizem Injection) 10 mg ONCE ONCE IV 10/06/24 21:00 10/06/24 21:01 DC 10/06/24 20:56 X-Ray, Labs, Meds, VS Comment 48 y/o F, with a Hx of CHF, COPD, SVT, pulmonary HTN presenting with palpitations, chest pain and found to be in SVT Initial vitals remarkable for heart rate 194, respiratory rate 22, BP 142/126, O2 sat 91% on room air Exam remarkable for tachycardia EKG #1 SVT, rate 195, inferior and lateral ST depression EKG #2 atrial rhythm, rate 70, inferior and lateral T-wave inversion Chest x-ray independently interpreted by me: Cardiomegaly with pulmonary vascular congestion, no definite infiltrate or effusion, normal mediastinal width, grossly normal bony thorax, no free air, no pneumothorax. CBC and CMP remarkable for AST 140, ALT 72, alkaline phos 140, no other abnormality of acute significance First troponin negative BNP 754.67 Patient treated with the following in the ED: Cardizem 10 mg IV, as after the patient self converted out of SVT by vomiting, she intermittently had runs of SVT. On re-evaluation patient was resting comfortably with stable vitals. Plan is to admit the patient for ongoing rate control and Cardiology evaluation. Time of 1ST Reevaluation: 21:00 Reevaluation 1ST: Unchanged Time of 2ND Reevaluation: 22:18 Reevaluation 2ND: Improved Patient Education/Counseling: Diagnosis, Treatment Family Education/Counseling: No Family Present Departure 1 Departure Time of Disposition: 22:18 Impression: Primary Impression: SVT (supraventricular tachycardia) Additional Impression: Chest pain Qualified Codes: I20.89 - Other forms of angina pectoris Disposition: ADMITTED INPATIENT Admit to: Tele Condition: Guarded Critical Care Note Critical Care Time?: Yes (35 min-critical care time only) Critical care comment: Critical care time including multiple bedside re-evaluations, review of laboratory and imaging studies, and discussion of the case with the admitting provider. Patient is high risk for hemodynamic decompensation. Stability Stability form required: No Heart Score Heart Score: Heart Score Response (Comments) Value History Highly Suspicious [address]-Deviation 2 Age 45-64 1 Risk Factors >3 or Hx ASHD 2 Troponin Normal limit 0 Total 7 I personally scribed for OLEGARIO CONTRERAS MD ([email or web address]) on 10/06/24 at 20:38. Electronically submitted by Rigoberto Wick ([email or web address]). OLEGARIO CONTRERAS MD Oct 06, 2024 20:38
[2024-10-06] MEDS: ADENOSINE 6 MG/2 ML INJ IV ONE (20:39)
[2024-10-06] MEDS: dilTIAZem 25 MG/5 ML VIAL IV ONE ×2 (20:56)
[2024-10-06] MEDS: LORazepam 2MG/ML-1ML VIAL IV ONE (20:56)
[2024-10-06 21:00] LABS: Basophils # (auto) 0.1 10 ^3/uL (0-0.2); Basophils % (auto) 1.2 % (0.0-2.0); Eosinophils # (auto) 0.2 10 ^3/uL (0-0.8); Eosinophils % (auto) 3.7 % (0.0-7.0); Hematocrit 49.5 % (36.0-46.0); Hemoglobin 17.2 g/dL (12.2-16.2); Lymphocytes # (auto) 3.1 10 ^3/uL (0.4-5.4); Lymphocytes % (auto) 48.4 % (10.0-50.0); Mean Corpuscular Hemoglobin 31.4 pg (28.0-32.0); Mean Corpuscular Hgb Conc. 34.8 g/dL (32.0-36.0); Mean Corpuscular Volume 90.3 fL (80.0-100.0); Monocytes # (auto) 0.5 10 ^3/uL (0-1.3); Monocytes % (auto) 7.5 % (0.0-12.0); Neutrophils # (auto) 2.5 10 ^3/uL (1.6-8.6); Neutrophils % (auto) 39.2 % (37.0-80.0); Nucleated Red Blood Cells % 0.6 %; Platelet Count (auto) 325 10^3/uL (140-450); Red Blood Cells 5.48 10^6/uL (4.0-5.20); White Blood Cell 6.5 10^3/uL (4.4-10.8)
[2024-10-06 21:10] LABS: Albumin 4.3 g/dL (3.2-4.8); Alkaline Phosphatase 140 U/L (46-116); Anion Gap 13 (5-15); Aspartate Aminotransferase 140 U/L (13-40); Bilirubin, Total 0.7 mg/dL (0.2-1.0); Calcium 9.8 mg/dL (8.7-10.4); Carbon Dioxide 21 mmol/L (20-31); Chloride 105 mmol/L (98-107); Glucose 139 mg/dL (74-106); Sodium 139 mmol/L (136-145); Total Protein 7.5 g/dL (5.7-8.2)
[2024-10-06 21:15] LABS: Partial Thromboplastin Time 26.8 SEC (24.5-34.5); Prothrombin Time 10.6 sec (9.3-11.8)
[2024-10-06 21:24] LABS: Alanine Aminotransferase 72 U/L (7-40); Blood Urea Nitrogen 10 mg/dL (9-23)
[2024-10-06 21:25] LABS: Potassium 4.3 mmol/L (3.5-5.1)
[2024-10-06 22:16] VITALS: PULSE 68; RESP 16; O2SAT 96
[2024-10-06] MEDS: ACETAMINOPHEN 500 MG TAB PO ONE (22:22)
--- NOTE | 2024-10-06 22:23 | DVH ---
CHEST RADIOGRAPH Indication: CP Technique: Single frontal view of the chest was obtained Comparison: XY CHEST PORTABLE on DOS: 03/25/23, CHEST XRAY 1 VIEW on DOS: 12/15/22, CXR1 on DOS: 12/15/22 FINDINGS: Lines and Tubes: None Lungs: No focal consolidation. Pleura: No effusion. No pneumothorax. Cardiomediastinal contours: Mild cardiomegaly Bones: No acute osseous abnormality. IMPRESSION: No acute cardiopulmonary disease.
[2024-10-06] MEDS ORDERED: TEMAZEPAM 15 MG CAP PO PRN (22:45)
[2024-10-06] MEDS ORDERED: ONDANSETRON HCL 4 MG/2 ML VIAL IV PRN (22:45)
[2024-10-06] MEDS ORDERED: NITROGLYCERIN 0.4 MG SL TAB SL PRN (22:45)
[2024-10-06] MEDS ORDERED: MORPHINE SULFATE INJ 2 MG/ml SYRG IV PRN (22:45)
[2024-10-06] MEDS ORDERED: ALBUTEROL SULF 2.5 MG/0.5ML(0.5%) NEB SOLN NEB PRN (22:45)
[2024-10-06 22:50] VITALS: BP 103/79; PULSE 70; RESP 16; TEMP 98.9; O2SAT 96
[2024-10-06 22:55] VITALS: O2SAT 96
[2024-10-07] VITALS (10 sets, daily range): BP systolic 100–122; BP diastolic 75–85; PULSE 55–80; RESP 16–20; TEMP 97.3–97.9; O2SAT 90–98
--- NOTE | 2024-10-07 00:09 | DVHHP2 ---
History of Present Illness Reason for Visit: Chest pain History of Present Illness 48-year-old female presents for evaluation of chest pain. Patient presents with a one day history of palpitations with associated chest pain. Patient does have history of SVT in the past. On arrival patient was noted to be in the SVT with a rate in the 180s. Patient denies dizziness or shortness for breath. No other acute complaints reported. Past Medical History COPD, congestive heart failure, SVT, pulmonary hypertension Past Surgical History and BTL Family History Noncontributory Smoke: <1 pack per day ALCOHOL: none Drugs: Marijuana Lives: with Family Review of Systems Review of Systems Review of systems are currently negative otherwise addressed in HPI Allergies: Coded Allergies: Penicillins (Verified Allergy, Mild, 12/22/22) Patient stated that she took PCNs by mouth when she was 12 years old and developed rash/hives at that time. Patient stated that she took Keflex about 2 years ago ( 2020) and tolerate well. There was no problem with Keflex Uncoded Allergies: CARDIZEM (Allergy, Intermediate, 10/06/24) HIVES Medications Current Medications Medications Dose Ordered Sig/Manolo Route Start Time Stop Time Status Last Admin Dose Admin Furosemide 40 mg DAILY PO 10/07/24 10:00 Albuterol 2.5 mg Q6HPRN PRN NEB 10/06/24 22:45 Amiodarone HCl 200 mg DAILY PO 10/07/24 10:00 Carvedilol 3.125 mg Q12HR PO 10/07/24 10:00 Sildenafil Citrate 20 mg TID@08,14,20 PO 10/07/24 08:00 Temazepam 15 mg QHSP PRN PO 10/06/24 22:45 Ondansetron HCl 4 mg Q4HP PRN IV 10/06/24 22:45 Nitroglycerin 0.4 mg Q5MINP PRN SL 10/06/24 22:45 Morphine Sulfate 2 mg Q30M PRN IV 10/06/24 22:45 Exam Vital Signs Vital Signs Date Time Temp Pulse Resp B/P (MAP) Pulse Ox O2 Delivery O2 Flow Rate FiO2 10/06/24 22:55 96 Nasal Cannula* 2 28 10/06/24 22:50 98.9 70 16 103/79 98.9 Exam Gen: 48-year-old female in mild distress Skin: Warm, dry, normal color and texture, no rash. HEENT: Normocephalic atraumatic, mucous membranes moist and pink. Neck: Cervical and supraclavicular nodes normal without enlargement, trachea is midline, thyroid gland is normal without masses. Pulmonary: Clear to auscultation and percussion bilaterally. Cardiac: SVT Abdomen: Soft, nontender, nondistended, bowel sounds present all 4 quadrants, no guarding, no rigidity, no organomegaly. Extremities: No cyanosis, clubbing, no edema Neuro: Cranial nerves II through XII grossly intact, normal affect and speech, no focal motor deficits. Labs/Xrays ORDERING PHYSICIAN: OLEGARIO CONTRERAS MD PROCEDURE(s): CXRP - CHEST PORTABLE REASON: CP ORDER NUMBER(s): [id number], ACCESSION NUMBER(s): [id number] CHEST RADIOGRAPH Indication: CP Technique: Single frontal view of the chest was obtained Comparison: XY CHEST PORTABLE on DOS: 03/25/23, CHEST XRAY 1 VIEW on DOS: 12/15/22, CXR1 on DOS: 12/15/22 FINDINGS: Lines and Tubes: None Lungs: No focal consolidation. Pleura: No effusion. No pneumothorax. Cardiomediastinal contours: Mild cardiomegaly Bones: No acute osseous abnormality. IMPRESSION: No acute cardiopulmonary disease. Labs Test 10/06/24 21:44 10/06/24 19:57 Range/Units Troponin I High Sensitivity 21 </=34 ng/L Thyroid Stimulating Hormone (TSH) 4.17 0.55-4.78 uIU/mL White Blood Count 6.5 4.4-10.8 10^3/uL Red Blood Count 5.48 H 4.0-5.20 10^6/uL Hemoglobin 17.2 H 12.2-16.2 g/dL Hematocrit 49.5 H 36.0-46.0 % Mean Corpuscular Volume 90.3 80.0-100.0 fL Mean Corpuscular Hemoglobin 31.4 28.0-32.0 pg Mean Corpuscular Hemoglobin Concent 34.8 32.0-36.0 g/dL Red Cell Distribution Width 14.0 11.8-14.3 % Platelet Count 325 140-450 10^3/uL Mean Platelet Volume 10.0 6.9-10.8 fL Neutrophils (%) (Auto) 39.2 37.0-80.0 % Lymphocytes (%) (Auto) 48.4 10.0-50.0 % Monocytes (%) (Auto) 7.5 0.0-12.0 % Eosinophils (%) (Auto) 3.7 0.0-7.0 % Basophils (%) (Auto) 1.2 0.0-2.0 % Neutrophils # (Auto) 2.5 1.6-8.6 10 ^3/uL Lymphocytes # (Auto) 3.1 0.4-5.4 10 ^3/uL Monocytes # (Auto) 0.5 0-1.3 10 ^3/uL Eosinophils # (Auto) 0.2 0-0.8 10 ^3/uL Basophils # (Auto) 0.1 0-0.2 10 ^3/uL Nucleated Red Blood Cells 0.6 % Prothrombin Time 10.6 9.3-11.8 sec Prothrombin Time INR 1.00 0.9-1.15 Activated Partial Thromboplast Time 26.8 24.5-34.5 SEC Sodium Level 139 136-145 mmol/L Potassium Level 4.3 3.5-5.1 mmol/L Chloride Level 105 98-107 mmol/L Carbon Dioxide Level 21 20-31 mmol/L Anion Gap 13 5-15 Blood Urea Nitrogen 10 9-23 mg/dL Creatinine 1.00 0.550-1.02 mg/dL Glomerular Filtration Rate Calc 69 >90 mL/min BUN/Creatinine Ratio 10.0 10.0-20.0 Serum Glucose 139 H 74-106 mg/dL Calcium Level 9.8 8.7-10.4 mg/dL Magnesium Level 2.0 1.6-2.6 mg/dL Total Bilirubin 0.7 0.2-1.0 mg/dL Aspartate Amino Transferase (AST) 140 H 13-40 U/L Alanine Aminotransferase (ALT) 72 H 7-40 U/L Alkaline Phosphatase 140 H 46-116 U/L B-Type Natriuretic Peptide 754.67 0-100 pg/mL Total Protein 7.5 5.7-8.2 g/dL Albumin 4.3 3.2-4.8 g/dL Assessment/Plan Assessment/Plan Assessment Supraventricular tachycardia Pulmonary hypertension Right-sided heart failure Plan Admit the patient to telemetry to the hospitalist Cardiology consultation Echocardiogram pending Resume home medications Continue treatment per orders. Plan discussed with: Patient My Orders Orders - KATERIN ENCARNACION Procedure Category Date Status Time Furosemide Tablet PHA 10/07/24 In Process (Lasix Tablet) 10:00 Albuterol Medneb PHA 10/06/24 In Process (Ventolin Medneb) 22:45 Amiodarone Tablet PHA 10/07/24 In Process (Cordarone Tablet) 10:00 Carvedilol Tablet PHA 10/07/24 In Process (Coreg Tablet) 10:00 Sildenafil Citrate PHA 10/07/24 In Process (Revatio) 08:00 * Cardiology Consult CONS 10/06/24 Transmitted 22:31 Basic Metabolic Panel LAB 10/07/24 Verified 04:00 Admit ADMIT 10/06/24 Transmitted 22:31 Temazepam (Restoril) PHA 10/06/24 In Process 22:45 Ondansetron Hcl PHA 10/06/24 In Process (Zofran) 22:45 Cardiac DIET 10/07/24 Transmitted Diet-2gna,Lofat,Lochol Breakfast Echo 2d Mode Cardiac US 10/06/24 Logged DOP 22:31 Condition: Fair [place] 10/06/24 In Process 22:31 Bedrest With Bathroom [place] 10/06/24 In Process Privileg 22:31 Nitroglycerin PHA 10/06/24 In Process Sublingual (Ntrostat 22:45 Morphine Sulfate PHA 10/06/24 In Process Injection 22:45 Stat Ekg For Chest [place] 10/06/24 In Process Pain 22:31 Notify Md Of Changes [place] 10/06/24 In Process From Base 22:31 Corrective Therapy Aide For [place] 10/06/24 In Process 24 Hours 22:31 Emergency Dysrhythmia [place] 10/06/24 In Process Protocol 22:31 Rhythm Strips Once [facility] 10/06/24 In Process Every Shift 22:31 Oxygen By Nasal RT 10/06/24 Transmitted Cannula 22:31 Date of Service: Oct 06, 2024 Billing Provider: KATERIN ENCARNACION Common Visit Codes: [id number] INP/OBS CARE (HIGH) KATERIN ENCARNACION Oct 07, 2024 00:09
--- NOTE | 2024-10-07 06:33 | ECG ---
[facility] Test Date: 2024-10-06 Test Time: 21:00:31 Pat Name: ELROY MORAES Department: ED Room: 0245T B Gender: F Mat Gauger: SEJAL : 1975 Requested By: OLEGARIO CARDOZA Order Number: [id number] Reading MD: Caden Leiva Measurements Intervals [place] Rate: 70 P: -61 MS: 162 QRS: 115 QRSD: 101 T: -56 QT: 394 QTc: 426 Interpretive Statements Ectopic atrial rhythm RVH with secondary repolarization abnrm Electronically Signed On 10-10-2024 17:16:43 PST by Caden Leiva Please click the below link to view image of tracing.
[2024-10-07] MEDS ORDERED: POTA-36 PO (06:57)
[2024-10-07 07:01] LABS: Chloride 109 mmol/L (98-107); Potassium 3.6 mmol/L (3.5-5.1); Sodium 140 mmol/L (136-145)
[2024-10-07 07:02] LABS: Anion Gap 8 (5-15); Calcium 8.9 mg/dL (8.7-10.4); Carbon Dioxide 23 mmol/L (20-31)
[2024-10-07 07:07] LABS: BUN/Creatinine Ratio 20.6 (10.0-20.0); Blood Urea Nitrogen 14 mg/dL (9-23); Glucose 88 mg/dL (74-106)
[2024-10-07] MEDS: SILDENAFIL CITRATE 20 MG TAB PO SCH (08:44)
[2024-10-07] MEDS: CARVEDILOL 3.125 MG TAB PO SCH (09:43)
[2024-10-07] MEDS: AMIODARONE HCL 200 MG TAB PO SCH (09:43)
[2024-10-07] MEDS: FUROSEMIDE 40 MG TAB PO SCH (09:44)
[2024-10-07] MEDS ORDERED: FUROSEMIDE 40 MG TAB PO SCH (10:00)
--- NOTE | 2024-10-07 11:23 | DVHPN2 ---
Subjective The patient is seen and examined at bedside. No heart palpitation today. No chest pain. No SVT. Reviewed: Care Plan, H&P, Labs, Medications, Previous Orders, Radiology Changes from previous H/P or p: No Changes Objective Vitals Vital Signs Date Time Temp Pulse Resp B/P (MAP) Pulse Ox O2 Delivery O2 Flow Rate FiO2 10/07/24 10:00 92 Room Air* 0 21 10/07/24 09:44 119/85 10/07/24 09:43 70 10/07/24 09:00 97.9 16 97.9 Intake/Output Intake and Output 10/07/24 06:59 Intake Total 0 ml Balance 0 ml Intake Oral 0 ml General Appearance: Alert, Oriented X3, Cooperative, No acute distress HEENT: Atraumatic, PERRLA, EOMI Neck: Supple Cardiovascular: Regular rate, Normal S1, Normal S2, No murmurs, Gallops, Rubs Abdomen: Normal bowel sounds, Soft, No tenderness Neuro: Cranial nerves 3-12 NL Psych/Mental Status: Mental status NL Medications Current Medications Medications Dose Ordered Sig/Manolo Route Start Time Stop Time Status Last Admin Dose Admin Furosemide 40 mg DAILY PO 10/07/24 10:00 10/07/24 09:44 40 MG Albuterol 2.5 mg Q6HPRN PRN NEB 10/06/24 22:45 Amiodarone HCl 200 mg DAILY PO 10/07/24 10:00 10/07/24 09:43 200 MG Carvedilol 3.125 mg Q12HR PO 10/07/24 10:00 10/07/24 09:43 3.125 MG Sildenafil Citrate 20 mg TID@08,14,20 PO 10/07/24 08:00 10/07/24 08:44 20 MG Temazepam 15 mg QHSP PRN PO 10/06/24 22:45 Ondansetron HCl 4 mg Q4HP PRN IV 10/06/24 22:45 Nitroglycerin 0.4 mg Q5MINP PRN SL 10/06/24 22:45 Morphine Sulfate 2 mg Q30M PRN IV 10/06/24 22:45 Laboratory Results Laboratory Tests 10/06/24 19:57 10/07/24 06:18 Chemistry Test 10/06/24 19:57 10/07/24 06:18 Albumin 4.3 g/dL (3.2-4.8) Calcium Level 9.8 mg/dL (8.7-10.4) 8.9 mg/dL (8.7-10.4) Magnesium Level 2.0 mg/dL (1.6-2.6) Total Protein 7.5 g/dL (5.7-8.2) Coagulation Test 10/06/24 19:57 Prothrombin Time 10.6 sec (9.3-11.8) Prothrombin Time INR 1.00 (0.9-1.15) Activated Partial Thromboplast Time 26.8 SEC (24.5-34.5) Cardiac Markers Test 10/06/24 19:57 B-Type Natriuretic Peptide 754.67 pg/mL (0-100) LFT Test 10/06/24 19:57 Alanine Aminotransferase (ALT) 72 U/L (7-40) H Alkaline Phosphatase 140 U/L (46-116) H Aspartate Amino Transferase (AST) 140 U/L (13-40) H Total Bilirubin 0.7 mg/dL (0.2-1.0) HgA1c, TSH Test 10/06/24 21:44 Thyroid Stimulating Hormone (TSH) 4.17 uIU/mL (0.55-4.78) Labs and/or images reviewed: Labs reviewed by me Assessment/Plan Assessment/Plan Supraventricular tachycardia Pulmonary hypertension Right-sided heart failure Continuing current management. Continuing with Coreg, amiodarone, and sildenafil Waiting for leadership development manager to see the patient. Her leadership development manager is Dr. Jiang. Plan discussed with: Patient Date of Service: Oct 07, 2024 Billing Provider: MUSHTAQ ABREU MD Common Visit Codes: [id number] INP/OBS CARE(HIGH) MUSHTAQ ABREU MD Oct 07, 2024 11:23
--- NOTE | 2024-10-07 13:10 | ECG ---
[facility] Test Date: 2024-10-06 Test Time: 19:56:00 Pat Name: ELROY MORAES Department: ER Room: 0245T B Gender: F [employer] Team Member: MERRY : 1975 Requested By: OLEGARIO CARDOZA Order Number: [id number] Reading MD: Caden Leiva Measurements Intervals [place] Rate: 195 P: 72 [place]: 117 QRS: 128 QRSD: 91 T: -33 QT: 280 QTc: 505 Interpretive Statements Supraventricular tachycardia RVH with secondary repolarization abnrm ST depression, probably rate related Electronically Signed On 10-10-2024 17:16:15 PST by Caden Leiva Please click the below link to view image of tracing.
[2024-10-07] MEDS: ACETAMINOPHEN 325 MG TAB PO PRN (14:07)
[2024-10-08] VITALS (11 sets, daily range): BP systolic 123–139; BP diastolic 85–100; PULSE 51–75; RESP 17–20; TEMP 96.5–98.5; O2SAT 93–98
--- NOTE | 2024-10-08 11:20 | DVHPN2 ---
Subjective The patient is seen and examined at bedside. No chest pain, no heart palpitation. Reviewed: Care Plan, H&P, Labs, Medications, Previous Orders, Radiology Changes from previous H/P or p: No Changes Objective Vitals Vital Signs Date Time Temp Pulse Resp B/P (MAP) Pulse Ox O2 Delivery O2 Flow Rate FiO2 10/08/24 10:00 93 Room Air* 0 21 10/08/24 09:46 77 142/92 10/08/24 09:00 97.6 18 97.6 Intake/Output Intake and Output 10/08/24 07:00 Intake Total 1250 ml Balance 1250 ml Intake Oral 1250 ml # Voids 7 General Appearance: Alert, Oriented X3, Cooperative, No acute distress HEENT: Atraumatic, PERRLA, EOMI, Mucous membr. moist/pink Neck: Supple Lungs: Clear to auscultation, Normal air movement Cardiovascular: Regular rate, Normal S1, Normal S2, No murmurs, Gallops, Rubs Abdomen: Normal bowel sounds, Soft, No tenderness, No hepatospenomegaly Neuro: Cranial nerves 3-12 NL Psych/Mental Status: Mental status NL Medications Current Medications Medications Dose Ordered Sig/Manolo Route Start Time Stop Time Status Last Admin Dose Admin Furosemide 40 mg DAILY PO 10/07/24 10:00 10/08/24 09:46 40 MG Albuterol 2.5 mg Q6HPRN PRN NEB 10/06/24 22:45 Amiodarone HCl 200 mg DAILY PO 10/07/24 10:00 10/08/24 09:45 200 MG Carvedilol 3.125 mg Q12HR PO 10/07/24 10:00 10/08/24 09:46 3.125 MG Sildenafil Citrate 20 mg TID@08,14,20 PO 10/07/24 08:00 10/08/24 08:00 20 MG Temazepam 15 mg QHSP PRN PO 10/06/24 22:45 Ondansetron HCl 4 mg Q4HP PRN IV 10/06/24 22:45 Nitroglycerin 0.4 mg Q5MINP PRN SL 10/06/24 22:45 Hold Morphine Sulfate 2 mg Q30M PRN IV 10/06/24 22:45 Acetaminophen 650 mg Q6HP PRN PO 10/07/24 14:00 10/07/24 14:07 650 MG Laboratory Results Laboratory Tests 10/06/24 19:57 10/07/24 06:18 Labs and/or images reviewed: Labs reviewed by me Assessment/Plan Assessment/Plan Supraventricular tachycardia Pulmonary hypertension Right-sided heart failure Continuing current management. Still waiting for her gang knife fish chopper, , to see the patient. Continuing amiodarone, Coreg, sildenafil. Plan discussed with: Patient My Orders Orders - MUSHTAQ ABREU MD Procedure Category Date Status Time Acetaminophen Tablet PHA 10/07/24 In Process (Tylenol Tablet) 14:00 Date of Service: Oct 08, 2024 Billing Provider: MUSHTAQ ABREU MD Common Visit Codes: [id number] INP/OBS CARE(HIGH) MUSHTAQ ABREU MD Oct 08, 2024 11:20
[2024-10-08 19:26] LABS: Urine Bacteria FEW /hpf (None Seen); Urine Blood Negative /uL (Negative); Urine Clarity Clear (Clear); Urine Color Yellow (Yellow); Urine Protein, UAD Negative (Negative); Urine Specific Gravity 1.015 (1.001-1.035); Urine Urobilinogen 12 mg/dL (Negative); Urine WBC 14 /hpf (0 - 5)
[2024-10-08 19:41] LABS: Amphetamine Screen, Urine Pos (NEGATIVE); Barbiturate Scree,Urine Neg (NEGATIVE); Benzodiazephine Screen, Urine Neg (NEGATIVE); Cannabinoid Screen, Urine Pos (NEGATIVE); Cocaine Screen, Urine Neg (NEGATIVE); Opiate Scree,Urine Neg (NEGATIVE); Phencyclidine Screen, Urine Neg (NEGATIVE)
[2024-10-09] VITALS (7 sets, daily range): BP systolic 116–135; BP diastolic 60–98; PULSE 52–74; RESP 17–19; TEMP 36.2; O2SAT 92–100
--- NOTE | 2024-10-09 11:36 | DVHPN2 ---
Objective Vitals Vital Signs Date Time Temp Pulse Resp B/P (MAP) Pulse Ox O2 Delivery O2 Flow Rate FiO2 10/09/24 10:37 58 135/98 10/09/24 08:00 17 98 Room Air* 0 21 10/09/24 05:00 98.1 98.1 Intake/Output Intake and Output 10/09/24 07:00 Intake Total 1400 ml Balance 1400 ml Intake Oral 1400 ml # Voids 10 # Bowel Movements 1 Medications Current Medications Medications Dose Ordered Sig/Manolo Route Start Time Stop Time Status Last Admin Dose Admin Furosemide 40 mg DAILY PO 10/07/24 10:00 10/09/24 10:37 40 MG Albuterol 2.5 mg Q6HPRN PRN NEB 10/06/24 22:45 Cancel Amiodarone HCl 200 mg DAILY PO 10/07/24 10:00 10/09/24 10:37 200 MG Carvedilol 3.125 mg Q12HR PO 10/07/24 10:00 10/09/24 10:37 3.125 MG Sildenafil Citrate 20 mg TID@08,14,20 PO 10/07/24 08:00 10/09/24 08:26 20 MG Temazepam 15 mg QHSP PRN PO 10/06/24 22:45 Ondansetron HCl 4 mg Q4HP PRN IV 10/06/24 22:45 Nitroglycerin 0.4 mg Q5MINP PRN SL 10/06/24 22:45 Hold Morphine Sulfate 2 mg Q30M PRN IV 10/06/24 22:45 Acetaminophen 650 mg Q6HP PRN PO 10/07/24 14:00 10/07/24 14:07 650 MG Laboratory Results Laboratory Tests 10/06/24 19:57 10/07/24 06:18 Urinalysis Test 10/08/24 19:03 Urine Color Yellow (Yellow) Urine Clarity Clear (Clear) Urine pH 6.0 (5.0-9.0) Urine Specific [employer] 1.015 (1.001-1.035) Urine Protein Negative (Negative) Urine Ketones Negative (Negative) Urine Blood Negative /uL (Negative) Urine Nitrite Negative (Negative) Urine Bilirubin Negative (Negative) Urine Urobilinogen 12 mg/dL (Negative) H Urine Leukocyte Esterase 3+ /uL (Negative) Urine RBC 5 /hpf (0 - 4) Urine WBC 14 /hpf (0 - 5) Urine Squamous Epithelial Cells Few /hpf (<5) Urine Bacteria Few /hpf (None Seen) H Urine Glucose Normal mg/dL (Normal) MUSHTAQ ABREU MD Oct 09, 2024 11:36
--- NOTE | 2024-10-09 12:08 | DVHDS2 ---
Discharge Summary Date of Admission Oct 06, 2024 at 22:31 Date of Discharge: Oct 09, 2024 Admitting Diagnosis Supraventricular tachycardia Pulmonary hypertension Right-sided heart failure Labs/Diagnostic Data: Laboratory Results Test 10/08/24 19:03 10/07/24 06:18 10/07/24 00:47 10/06/24 21:44 Urine Color Yellow (Yellow) Urine Clarity Clear (Clear) Urine pH 6.0 (5.0-9.0) Urine Specific [employer] 1.015 (1.001-1.035) Urine Protein Negative (Negative) Urine Ketones Negative (Negative) Urine Blood Negative /uL (Negative) Urine Nitrite Negative (Negative) Urine Bilirubin Negative (Negative) Urine Urobilinogen 12 mg/dL (Negative) Urine Leukocyte Esterase 3+ /uL (Negative) Urine RBC 5 /hpf (0 - 4) Urine WBC 14 /hpf (0 - 5) Urine Squamous Epithelial Cells Few /hpf (<5) Urine Bacteria Few /hpf (None Seen) Urine Glucose Normal mg/dL (Normal) Urine Opiates Screen Neg (NEGATIVE) Urine Fentanyl Screen Neg (NEGATIVE) Urine Barbiturates Screen Neg (NEGATIVE) Urine Phencyclidine Screen Neg (NEGATIVE) Urine Amphetamines Screen Pos (NEGATIVE) Urine Benzodiazepines Screen Neg (NEGATIVE) Urine Cocaine Screen Neg (NEGATIVE) Urine Cannabinoids Screen Pos (NEGATIVE) Sodium Level 140 mmol/L (136-145) Potassium Level 3.6 mmol/L (3.5-5.1) Chloride Level 109 mmol/L (98-107) Carbon Dioxide Level 23 mmol/L (20-31) Anion Gap 8 (5-15) Blood Urea Nitrogen 14 mg/dL (9-23) Creatinine 0.68 mg/dL (0.550-1.02) Glomerular Filtration Rate Calc 106 mL/min (>90) BUN/Creatinine Ratio 20.6 (10.0-20.0) Serum Glucose 88 mg/dL (74-106) Calcium Level 8.9 mg/dL (8.7-10.4) Troponin I High Sensitivity 36 ng/L (</=34) Thyroid Stimulating Hormone (TSH) 4.17 uIU/mL (0.55-4.78) Test 10/06/24 19:57 White Blood Count 6.5 10^3/uL (4.4-10.8) Red Blood Count 5.48 10^6/uL (4.0-5.20) Hemoglobin 17.2 g/dL (12.2-16.2) Hematocrit 49.5 % (36.0-46.0) Mean Corpuscular Volume 90.3 fL (80.0-100.0) Mean Corpuscular Hemoglobin 31.4 pg (28.0-32.0) Mean Corpuscular Hemoglobin Concent 34.8 g/dL (32.0-36.0) Red Cell Distribution Width 14.0 % (11.8-14.3) Platelet Count 325 10^3/uL (140-450) Mean Platelet Volume 10.0 fL (6.9-10.8) Neutrophils (%) (Auto) 39.2 % (37.0-80.0) Lymphocytes (%) (Auto) 48.4 % (10.0-50.0) Monocytes (%) (Auto) 7.5 % (0.0-12.0) Eosinophils (%) (Auto) 3.7 % (0.0-7.0) Basophils (%) (Auto) 1.2 % (0.0-2.0) Neutrophils # (Auto) 2.5 10 ^3/uL (1.6-8.6) Lymphocytes # (Auto) 3.1 10 ^3/uL (0.4-5.4) Monocytes # (Auto) 0.5 10 ^3/uL (0-1.3) Eosinophils # (Auto) 0.2 10 ^3/uL (0-0.8) Basophils # (Auto) 0.1 10 ^3/uL (0-0.2) Nucleated Red Blood Cells 0.6 % Prothrombin Time 10.6 sec (9.3-11.8) Prothrombin Time INR 1.00 (0.9-1.15) Activated Partial Thromboplast Time 26.8 SEC (24.5-34.5) Magnesium Level 2.0 mg/dL (1.6-2.6) Total Bilirubin 0.7 mg/dL (0.2-1.0) Aspartate Amino Transferase (AST) 140 U/L (13-40) Alanine Aminotransferase (ALT) 72 U/L (7-40) Alkaline Phosphatase 140 U/L (46-116) B-Type Natriuretic Peptide 754.67 pg/mL (0-100) Total Protein 7.5 g/dL (5.7-8.2) Albumin 4.3 g/dL (3.2-4.8) Other Laboratory Tests 10/07/24 06:18 10/06/24 19:57 Brief Hx & Hospital Course: This is a 48 years old female with past medical history of SVT status post ablation at [facility], severe pulmonary hypertension, history illicit drug use, right heart failure come to emergency department with chief complaint of severe heart palpitation and nauseated and dizzy. The patient was noted to have SVT with heart rate of 170-180. The patient was put on beta brittaney carvedilol, amiodarone. Echo was done. Her heart rate now back to normal rhythm. The patient was seen by her corridor redevelopment manager, , today and his recommendation is continuing with beta brittaney, sildenafil, restrict salt and fluid intake, continuing Lasix per home dose and avoid using illicit drugs. If SVT records the patient may need EP re-evaluation for repeat radiofrequency ablation. He will follow up with her as outpatient. So I am going to discharge her home today. Advised her to compliant with out advice. Advised her not using illicit drugs. Continuing with medication as stated above. Follow up with primary care physician 1-2 weeks. Follow up with Dr. Carbone, per schedule. Activity as tolerated. Diet per home diet. Recommend low-salt low-cholesterol diet. Physical exam: HEENT: Normocephalic atraumatic pupils equal react to light and accommodation. Extraocular muscles intact, conjunctiva pink, oropharynx moist, no thrush, no exudate. Lymphatic: No lymphadenopathy Cardiovascular exam: S1, S2 was heard. No murmurs, rubs, gallops Lung: Clear on auscultation bilaterally, no wheeze, rale, rhonchi. GI: Abdominal soft, nondistended, nontenderness, positive bowel sounds. Extremity: No crepitus, cyanosis, edema. Pedal pulses present bilateral. Full range of motion. Skin: Normal turgor, no rash. Psych: Alert, oriented x3. Neurology: No focal deficits, cranial nerve II to XII grossly intact. Condition at Discharge: Stable Final Diagnosis/Problems List Supraventricular tachycardia Pulmonary hypertension Right-sided heart failure Discharge Disposition: Home Discharge Instruct/Medications Diet: Cardiac 2g Na,low cholest Activity: No Restrictions, As Tolerated Follow Up/Referral: PCP 1-[address] CARBONE, CARDIOLOGY PER SCHEDULE Medications: RESUME HOME MEDS HOLD CAVEDILOL WHEN HR LESS THAN 60 Discharge Statement: "Patient was advised to return to the ER or call 911 if any headaches, dizziness, shortness of breath, chest pain, abdominal pain, bleeding, fevers, or worsening of medical condition. Patient was counseled about treatment plan, medications, possible side effects, patientverbalized understanding. All questions were answered to the best of my ability. This discharge took greater then 30 minutes in planning, reviewing documentation, counseling the patient, and discussing with other team members." ASSESSMENT ASSESSMENT Assessment svt Date of Service: Oct 09, 2024 Billing Provider: MUSHTAQ ABREU MD Common Visit Codes: 83849-QES/OBS DISCH DAY >30min MUSHTAQ ABREU MD Oct 09, 2024 12:08
--- NOTE | 2024-10-09 20:46 | DVHINCON2 ---
DATE OF CONSULTATION: 10/08/2024 REFERRING PHYSICIAN: Dr. Linda Larsen CONSULTING PHYSICIAN: Dr. Jiang. INDICATION: Tachycardia. HISTORY OF PRESENT ILLNESS: The patient is a 48-year-old female with history of SVT status post ablation at [facility], history of severe pulmonary hypertension, history of illicit drug use, right heart failure, now presented to the hospital with complaints of palpitation, shortness of breath and chest discomfort. In the hospital, the patient was noted to be in SVT, heart rate in the 170s to 180s. The patient had an episode of vomiting following which her rhythm converted to sinus rhythm and has remained so. Currently, she is relatively asymptomatic. Denies any chest pain. PAST MEDICAL HISTORY: * SVT. * Pulmonary hypertension. * Congestive heart failure. * COPD. MEDICATIONS: Per med rec. ALLERGIES: No known drug allergies. PHYSICAL EXAMINATION: GENERAL: Alert and awake, in no form of cardiopulmonary distress. VITAL SIGNS: Blood pressure 133/83, pulse 55 per minute, saturation 92%. HEENT: No carotid bruits. No jugular venous distention. CHEST: Bilateral air entry. CARDIOVASCULAR: Submucosal and palpable. Normal S1, S2. EXTREMITIES: Bilateral edema. DIAGNOSTIC DATA: Urine tox was positive for methamphetamine. White count 6, hemoglobin 17, platelet is 325. Sodium 140, potassium 3.6, creatinine is 0.6. ASSESSMENT: * Supraventricular tachycardia converted to sinus rhythm spontaneously. * History of radiofrequency ablation for supraventricular tachycardia. 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 * Illicit drug use. * Right heart failure. * Chronic obstructive pulmonary disease. RECOMMENDATIONS: * Continue with beta brittaney. * Continue sildenafil. * The patient advised to refrain from illicit drug use. * Restrict salt and fluid intake. * Continue Lasix. * If SVT recurs, the patient may need EP reevaluation for repeat radiofrequency ablation. * The patient is stable for discharge from cardiac standpoint at this point with outpatient followup. Thank you for allowing me to participate in the care of this patient. MD RENATO Joya/RICKEY/LUCILLE TID: [id number] RECEIPT: [id number]
== END 2024-10-09 13:40 | disposition home or self-care (01) | DRG 201 ==
LOC: ER 19:48 → TELE 22:31 → TELE-EAST 10-07 02:56
PROVIDERS: ADMIT Nurse Practitioner; ATTEND Internal Medicine
DX: I47.10 Supraventricular tachycardia, unspecified (principal); I27.20 Pulmonary hypertension, unspecified; I11.0 Hypertensive heart disease with heart failure; I50.810 Right heart failure, unspecified; F12.90 Cannabis use, unspecified, uncomplicated; J44.9 Chronic obstructive pulmonary disease, unspecified; F15.90 Other stimulant use, unspecified, uncomplicated; F17.210 Nicotine dependence, cigarettes, uncomplicated; Z88.0 Allergy status to penicillin
CPT/HCPCS: 36415; 71045; 80048; 80053; 80307; 81001; 83735; 83880; 84443; 84484; 85025; 85610; 85730; 93005; 93306; 99291; G0378; J0153